=== PATIENT | female | born 1950 | race Caucasian/White ===

== ENCOUNTER 2017-05-06 10:13 | Outpatient (CLI) | payer OTHER ==
[2017-05-06 11:19] LABS: BASOPHILS % (AUTO) 0.5 %; EOSINOPHILS # (AUTO) 0.2 10^3/uL (0.0-0.7); EOSINOPHILS % (AUTO) 2.9 %; HCT - HEMATOCRIT 37.6 % (37.0-47.0); LYMPHOCYTES # (AUTO) 1.5 10^3/uL (1.5-3.5); LYMPHOCYTES % (AUTO) 24.3 %; MEAN CORPUSCULAR HEMOGLOBIN 31.1 pg (27.0-31.0); MEAN CORPUSCULAR HGB CONC 34.4 g/dL (32.0-36.0); MEAN CORPUSCULAR VOLUME 90.4 fL (81.0-99.0); MEAN PLATELET VOLUME 7.3 fL (7.9-10.8); MONOCYTES # (AUTO) 0.4 10^3/uL (0.0-1.0); NEUTROPHILS % (AUTO) 65.3 %; RED BLOOD COUNT 4.16 10^6/uL (4.20-5.40); RED CELL DISTRIBUTION WIDTH 13.6 % (12.0-15.0); UNCORRECTED WHITE BLOOD COUNT 6.2 x10^3/uL; WHITE BLOOD COUNT 6.2 x10^3/uL (4.8-10.8)
[2017-05-06 11:33] LABS: ALBUMIN/GLOBULIN RATIO 1.5 (1.0-2.2); BILIRUBIN,TOTAL 0.7 mg/dL (0.2-1.0); BUN - BLOOD UREA NITROGEN 20 mg/dL (6-20); CALCIUM 9.8 mg/dL (8.5-10.3); CARBON DIOXIDE - CO2 25 mmol/L (21-32); CHLORIDE 103 mmol/L (101-111); CHOL/HDL RATIO 2.5 (<4.4); CHOLESTEROL 173 mg/dL; CREATININE 1.2 mg/dL (0.4-1.0); GFR - MDRD 45 (>89); GLUCOSE 103 mg/dL (70-100); HDL CHOLESTEROL 70 mg/dL; LDL/HDL RATIO 1.1 (<4.4); POTASSIUM 3.8 mmol/L (3.5-5.0); SODIUM 140 mmol/L (135-145); TOTAL PROTEIN 7.1 g/dL (6.7-8.2); TRIGLYCERIDES 139 mg/dL; VLDL CHOLESTEROL 28 mg/dL
[2017-05-06 11:36] LABS: HEMOGLOBIN A1C 0.58 g/dL
[2017-05-06 11:57] LABS: THYROID STIMULATING HORMONE 0.38 uIU/mL (0.34-5.60)
== END 2017-05-06 10:14 | disposition home or self-care (01) ==
LOC: LAB 10:13
PROVIDERS: ATTEND Physician Assistant
DX: E78.5 Hyperlipidemia, unspecified (principal); E03.9 Hypothyroidism, unspecified; E55.9 Vitamin D deficiency, unspecified; R73.01 Impaired fasting glucose
CPT/HCPCS: 36415; 80053; 80061; 82306; 83036; 84436; 84443; 85025

== ENCOUNTER 2017-10-13 10:23 | Emergency (ER) | payer OTHER ==
[2017-10-13 11:05] VITALS: BP 128/68
--- NOTE | 2017-10-13 11:23 | XRAY Report ---
EXAM: RIGHT FOOT RADIOGRAPHY EXAM DATE: 10/13/2017 11:03 AM. CLINICAL HISTORY: Right foot pain. COMPARISON: None. TECHNIQUE: 3 views. FINDINGS: Bones: No fracture or bone destructive process. No periostitis. Small dorsal calcaneal enthesophyte. Joints: No subluxation. Mild degenerative changes first MTP joint. Soft Tissues: No periarticular or soft tissue calcification or soft tissue emphysema. IMPRESSION: 1. No fracture or bony malalignment. 2. Mild degenerative changes first MTP joint. [facility] Referring Provider Line: [phone] SITE ID: [id number]
--- NOTE | 2017-10-13 11:23 | XRAY Preliminary Report ---
Exam: XR FOOT 3 VIEW RT IMPRESSION: 1. No fracture or bony malalignment. 2. Mild degenerative changes first MTP joint. [facility] SITE ID: [id number]
--- NOTE | 2017-10-13 12:12 | ED Physician Documentation ---
PD HPI LOWER EXT INJURY - Stated complaint Stated Complaint: R FOOT PX - Chief complaint Chief Complaint: Trauma Ext - History obtained from History obtained from: Patient - History of Present Illness PD HPI LOW EXT INJURY LOCATION: Right, Foot Type of injury: Twist Timing - onset: Yesterday Timing - details: Abrupt onset, Still present Worsened by: Moving, Palpating Associated symptoms: Swelling. No: Weakness, Numbness Similar symptoms before: Has not had sx before Recently seen: Not recently seen Review of Systems Skin: denies: Abrasion (s), Laceration (s) Musculoskeletal: reports: Extremity swelling Neurologic: denies: Focal weakness, Numbness PD PAST MEDICAL HISTORY - Past Medical History Past Medical History: Yes Cardiovascular: High cholesterol Endocrine/Autoimmune: Other HEENT: Chronic sinusitis - Past Surgical History Past Surgical History: No - Present Medications Home Medications: Ambulatory Orders Medication Instructions Recorded Confirmed Acetaminophen [Tylenol] 1,000 mg PO Q8HR PRN 10/13/17 Aspirin [Aspirin EC] 81 mg PO DAILY 10/13/17 Atorvastatin [Lipitor] 20 mg PO DAILY 10/13/17 Levothyroxine [Synthroid] 88 mcg PO DAILY 10/13/17 Loratadine [Claritin] 10 mg PO DAILY 10/13/17 guaiFENesin [Guaifenesin] 200 mg PO BID 10/13/17 metFORMIN [Glucophage] 500 mg PO BID 10/13/17 - Social History Does the pt smoke?: No Smoking Status: Never smoker - Immunizations Immunizations are current?: Yes PD ED PE NORMAL - Vitals Vital signs reviewed: Yes - General General: Alert and oriented X 3, No acute distress, Well developed/nourished - Derm Derm: Normal color, Warm and dry - Extremities Extremities: Other (right foot with tenderness proximally at anterolateral aspect. Not tender at 5th MT per se. Local swelling and bruising. The malleoli themselves are not tender. ) Results - Vitals Vitals: Oxygen O2 Source Room air - Rads (name of study) right foot Radiology: Prelim report reviewed, EMP read contemporaneously (no fractures; some arthritic changes) PD MEDICAL DECISION MAKING - ED course Complexity details: reviewed results, considered differential, d/w patient Departure - Departure Disposition: 01 Home, Self Care Clinical Impression: Sprain of right foot Qualifiers: Encounter type: initial encounter Qualified Code(s): S93.601A - Unspecified sprain of right foot, initial encounter Condition: Stable Record reviewed to determine appropriate education?: Yes Instructions: ED Sprain Foot Follow-Up: Ximena Adhikari PA [Primary Care Provider] - Comments: Firm soled shoe to help reduce motion in the midfoot. Weightbearing as tolerated and can use crutches for partial weightbearing if needed. Tylenol or ibuprofen or naproxen if needed for pains. Elevate and rest the foot often to reduce swelling. Recheck if not improved over the next week. Your x-ray appears normal without any fractures. Discharge Date/Time: 10/13/17 12:48
== END 2017-10-13 12:48 | disposition home or self-care (01) ==
LOC: ED 10:23
DX: S93.601A Unspecified sprain of right foot, initial encounter (principal); W01.0XXA Fall on same level from slipping, tripping and stumbling without subsequent striking against object, initial encounter
CPT/HCPCS: 99283

== ENCOUNTER 2018-09-10 08:08 | Outpatient (CLI) | payer BC ==
[2018-09-10 08:39] LABS: ALBUMIN 3.9 g/dL (3.2-5.5); ALBUMIN/GLOBULIN RATIO 1.4 (1.0-2.2); ALKALINE PHOSPHATASE 66 IU/L (42-121); ALT ALANINE AMINOTRANSFERASE 17 IU/L (10-60); AST ASPARTATE AMINOTRANSFERASE 18 IU/L (10-42); BUN - BLOOD UREA NITROGEN 18 mg/dL (6-20); CALCIUM 9.2 mg/dL (8.5-10.3); CARBON DIOXIDE - CO2 27 mmol/L (21-32); CHLORIDE 103 mmol/L (101-111); CHOL/HDL RATIO 2.4 (<4.4); CHOLESTEROL 146 mg/dL; CREATININE 1.1 mg/dL (0.4-1.0); GFR - MDRD 50 (>89); GLUCOSE 115 mg/dL (70-100); HDL CHOLESTEROL 62 mg/dL; LDL CHOLESTEROL,CALCULATED 65 mg/dL; SODIUM 138 mmol/L (135-145); TOTAL PROTEIN 6.6 g/dL (6.7-8.2); VLDL CHOLESTEROL 19 mg/dL
== END 2018-09-10 08:09 | disposition home or self-care (01) ==
LOC: LAB 08:08
PROVIDERS: ATTEND Physician Assistant
DX: E78.2 Mixed hyperlipidemia (principal)
CPT/HCPCS: 36415; 80053; 80061; 83721

== ENCOUNTER 2019-01-13 08:55 | Outpatient (CLI) | payer BC ==
[2019-01-13 09:46] LABS: ALBUMIN 4.5 g/dL (3.2-5.5); ALBUMIN/GLOBULIN RATIO 1.5 (1.0-2.2); ALKALINE PHOSPHATASE 67 IU/L (42-121); ALT ALANINE AMINOTRANSFERASE 17 IU/L (10-60); AST ASPARTATE AMINOTRANSFERASE 19 IU/L (10-42); BILIRUBIN,TOTAL 0.6 mg/dL (0.2-1.0); BUN - BLOOD UREA NITROGEN 23 mg/dL (6-20); CALCIUM 9.6 mg/dL (8.5-10.3); CARBON DIOXIDE - CO2 23 mmol/L (21-32); CHLORIDE 108 mmol/L (101-111); CHOL/HDL RATIO 2.1 (<4.4); CHOLESTEROL 159 mg/dL; CREATININE 1.2 mg/dL (0.4-1.0); GFR - MDRD 45 (>89); GLUCOSE 112 mg/dL (70-100); HDL CHOLESTEROL 75 mg/dL; LDL CHOLESTEROL,CALCULATED 65 mg/dL; LDL/HDL RATIO 0.9 (<4.4); SODIUM 143 mmol/L (135-145); TOTAL PROTEIN 7.6 g/dL (6.7-8.2); VLDL CHOLESTEROL 19 mg/dL
[2019-01-13 09:47] LABS: HB2 TOTAL 14.4 g/dL; HEMOGLOBIN A1C 0.62 g/dL; HEMOGLOBIN A1C % 6.1 % (4.6-6.2)
[2019-01-13 10:36] LABS: THYROID STIMULATING HORMONE 0.92 uIU/mL (0.34-5.60)
[2019-01-13 10:39] LABS: FREE T4 (FREE THYROXINE) 1.06 ng/dL (0.58-1.64)
[2019-01-13 10:43] LABS: TOTAL T3 0.94 ng/mL (0.87-1.78)
== END 2019-01-13 08:56 | disposition home or self-care (01) ==
LOC: LAB 08:55
PROVIDERS: ATTEND Physician Assistant
DX: E03.9 Hypothyroidism, unspecified (principal); N18.9 Chronic kidney disease, unspecified; R73.01 Impaired fasting glucose; E78.2 Mixed hyperlipidemia
CPT/HCPCS: 36415; 80053; 80061; 83036; 83721; 84439; 84443; 84480

== ENCOUNTER 2019-12-09 14:16 | Outpatient (CLI) | payer BC | END 2019-12-09 14:17 | disposition home or self-care (01) | LOC: LAB 14:16 | PROVIDERS: ATTEND Dermatology MOHS-Micrographic Surgery | DX: Z01.818 Encounter for other preprocedural examination (principal); Z20.828 Contact with and (suspected) exposure to other viral communicable diseases ==

== ENCOUNTER 2020-01-31 16:33 | Outpatient (CLI) | payer BC ==
--- NOTE | 2020-02-01 12:42 | Mammography Report ---
BILATERAL DIGITAL SCREENING MAMMOGRAM 3D/2D: 01/31/2020 CLINICAL: Routine screening. Comparison is made to exam dated: 04/23/2016 mammogram - [facility]. There are sc attered fibroglandular elements in both breasts. No significant masses, calcifications, or other findings are seen in either breast. There has been no significant interval change. IMPRESSION: NEGATIVE There is no mammographic evidence of malignancy. A 1 year screening mammogram is recommended. This exam was interpreted at Station ID: [id number]. NOTE: For mammograms, a report in lay terms will be sent to the patient. Approximately 15% of breast malignancies will not be visualized mammographically. In the management of a palpable breast mass, a negative mammogram must not discourage biopsy of a clinically suspicious lesion. Electronically Signed By: Zuly do/kandace:02/01/2020 10:16:21 ACR BI-RADS Category 1: Negative 3341F PARENCHYMAL PATTERN: (A) - The breast(s) demonstrate(s) scattered fibroglandular densities. BI-RADS CATEGORY: (1) - 1 RECOMMENDATION: (ANNUAL) - Recommend routine annual screening mammography. [id number] 1 year screening LATERALITY: (B)
== END 2020-01-31 16:34 | disposition home or self-care (01) ==
LOC: DI 16:33
PROVIDERS: ATTEND Nurse Practitioner Family
DX: Z12.31 Encounter for screening mammogram for malignant neoplasm of breast (principal)
CPT/HCPCS: 77063; 77067

== ENCOUNTER 2020-03-21 14:24 | Outpatient (CLI) | payer BC ==
[2020-03-21 15:09] LABS: BASOPHILS % (AUTO) 0.8 %; EOSINOPHILS # (AUTO) 0.2 10^3/uL (0.0-0.7); EOSINOPHILS % (AUTO) 3.5 %; HGB - HEMOGLOBIN 13.6 g/dL (12.0-16.0); LYMPHOCYTES # (AUTO) 1.5 10^3/uL (1.5-3.5); LYMPHOCYTES % (AUTO) 31.5 %; MEAN CORPUSCULAR HEMOGLOBIN 31.1 pg (27.0-31.0); MEAN CORPUSCULAR HGB CONC 32.9 g/dL (32.0-36.0); MEAN CORPUSCULAR VOLUME 94.7 fL (81.0-99.0); MEAN PLATELET VOLUME 9.1 fL (7.9-10.8); MONOCYTES # (AUTO) 0.4 10^3/uL (0.0-1.0); MONOCYTES % (AUTO) 7.6 %; NEUTROPHILS # (AUTO) 2.7 10^3/uL (1.5-6.6); NEUTROPHILS % (AUTO) 56.4 %; PLT - PLATELET COUNT 280 10^3/uL (130-450); RED BLOOD COUNT 4.37 10^6/uL (4.20-5.40); RED CELL DISTRIBUTION WIDTH 13.7 % (12.0-15.0); WHITE BLOOD COUNT 4.9 x10^3/uL (4.8-10.8)
[2020-03-21 15:18] LABS: ALBUMIN 4.6 g/dL (3.2-5.5); ALBUMIN/GLOBULIN RATIO 1.5 (1.0-2.2); BILIRUBIN,TOTAL 0.7 mg/dL (0.2-1.0); CALCIUM 9.6 mg/dL (8.5-10.3); CREATININE 1.3 mg/dL (0.4-1.0); TOTAL PROTEIN 7.6 g/dL (6.7-8.2)
[2020-03-21 15:19] LABS: INR 1.1 (0.8-1.2); PT - PROTHROMBIN TIME 12.4 secs (9.9-12.6)
[2020-03-21 15:26] LABS: PARTIAL THROMBOPLASTIN TIME 35.9 secs (24.9-33.3)
== END 2020-03-21 14:25 | disposition home or self-care (01) ==
LOC: LAB 14:24
PROVIDERS: ATTEND Physician Assistant
DX: Z01.818 Encounter for other preprocedural examination (principal)
CPT/HCPCS: 36415; 80053; 85025; 85610; 85730

== ENCOUNTER 2020-03-23 15:20 | Outpatient (CLI) | payer BC ==
--- NOTE | 2020-03-23 16:09 | XRAY Report ---
PROCEDURE: Knee 4 View BILAT INDICATIONS: OSTEOARTHRITIS, KNEES, BILAT TECHNIQUE: 3 views of each knee were acquired. COMPARISON: 01/12/2019. FINDINGS: Bones: No fractures or dislocations. Postsurgical changes redemonstrated consistent with prior right ACL reconstruction. Tricompartmental osteophytosis demonstrated bilaterally. Within the right knee, there is moderate to severe joint space narrowing in the lateral compartment with subchondral scleros is. There is mild joint space narrowing in the medial compartment. In the patellofemoral compartment, there is lateral shift of the patella with osteophytosis. There is associated moderate to severe heidi rowing in the lateral patellofemoral compartment. The findings appear increased compared to the prior study. On the left, there is moderate joint space narrowing in the lateral compartment with subchond ral sclerosis. This appears similar to the prior study. In the patellofemoral compartment, there is o steophytosis in the medial and lateral compartments with associated moderate narrowing medially and m ild narrowing laterally. Soft tissues: There is a small left knee joint effusion and minimal right effusion. A calcification i s redemonstrated anteriorly at the femoral tibial joint on the left again likely representing a joint body. IMPRESSION: 1. Bilateral osteoarthritic changes, most prominent in the right lateral tibiofemoral and patellofemo ral compartments where there is moderate to severe joint space narrowing. Findings appear progressed compared to the prior study on the right and similar on the left. 2. Small left knee joint effusion. 3. Probable small joint body redemonstrated in the left knee. Reviewed by: Ian Arias MD on 03/23/2020 4:08 PM PDT Approved by: Ian Arias MD on 03/23/2020 4:08 PM PDT Station ID: [id number]
== END 2020-03-23 15:21 | disposition home or self-care (01) ==
LOC: DI 15:20
PROVIDERS: ATTEND Orthopaedic Surgery
DX: M17.0 Bilateral primary osteoarthritis of knee (principal); M25.462 Effusion, left knee

== ENCOUNTER 2020-07-06 18:55 | Outpatient (CLI) | payer BC | END 2020-07-06 18:56 | disposition home or self-care (01) | LOC: COV 18:55 | PROVIDERS: ATTEND Orthopaedic Surgery | DX: Z01.812 Encounter for preprocedural laboratory examination (principal); M17.12 Unilateral primary osteoarthritis, left knee; Z20.822 Contact with and (suspected) exposure to COVID-19 ==

== ENCOUNTER 2020-07-11 06:18 | Day surgery (SDC) | payer BC ==
[2020-07-11] MEDS ORDERED: GABAPENTIN 400 MG CAPSULE ONE (06:44)
[2020-07-11] MEDS ORDERED: CELECOXIB 100 MG CAPSULE PO ONE (06:44)
[2020-07-11] MEDS ORDERED: ceFAZolin 2 GM/50 ML 2 GM/50 ML BAG IV ONE (06:45)
[2020-07-11] MEDS ORDERED: ACETAMINOPHEN 1,000 MG/100 ML 100 ML IV ONE (06:45)
[2020-07-11] MEDS ORDERED: DEXAMETHASONE 10 MG/ML VIAL ONE (06:45)
[2020-07-11] MEDS ORDERED: SODIUM CHLORIDE 0.9% 1,000 ML IV ONE (07:00)
[2020-07-11] MEDS ORDERED: LACTATED RINGERS 1,000 ML IV ONE ×2 (07:00→11:55)
[2020-07-11] MEDS ORDERED: VANCOMYCIN 1 GM VIAL ONE ×2 (07:11→07:47)
[2020-07-11] MEDS ORDERED: ceFAZolin 1 GM VIAL ONE (07:11)
--- NOTE | 2020-07-11 07:19 | ANESTHESIA ---
Pre-Anesthesia VS, & Labs - Diagnosis left knee osteoarthritis - Procedure left knee arthroplasty Vital Signs: Temp Pulse Resp BP Pulse Ox 36.0 C L 67 16 124/69 97 07/11/20 07:03 07/11/20 07:03 07/11/20 07:03 07/11/20 07:03 07/11/20 07:03 Height: 5 ft 7 in Weight (kg): 84.5 kg Body Mass Index: 29.1 BMI Classification: Overweight - NPO >8 hours - Is Patient ?: No - Lab Results Current Lab Results: Laboratory Tests 07/11/20 06:56: POC Whole Bld Glucose 81 Home Medications and Allergies Home Medications: Ambulatory Orders Glucosam/Fer-Msm1/C/Jose Daniel/Bosw [Jfugcjbnmzx-Eeqgwbzdfjm-GMP Tb] 1 each PO DAILY 06/29/20 Turmeric 400 mg PO DAILY 06/29/20 Escitalopram [Lexapro] 10 mg PO DAILY 07/11/20 Atorvastatin [Lipitor] 20 mg PO DAILY 10/13/17 Levothyroxine [Synthroid] 88 mcg PO DAILY 10/13/17 Glucosam/Fer-Msm1/C/Jose Daniel/Bosw [Djrsrtlcqyo-Ftaeqyboinb-HEL Tb] 1 each PO DAILY 06/29/20 Turmeric 400 mg PO DAILY 06/29/20 Escitalopram [Lexapro] 10 mg PO DAILY 07/11/20 Allergies/Adverse Reactions: Allergies Allergy/AdvReac Type Severity Reaction Status Date / Time baclofen Allergy hypotension Verified 06/29/20 12:11 duloxetine [From Cymbalta] AdvReac diarrhea Verified 06/29/20 12:11 gluten AdvReac worsens IBS Verified 06/29/20 12:11 dairy products AdvReac worsens IBS Uncoded 06/29/20 12:11 Anes History & Medical History - Anesthetic History Anesthesia Complications: reports: No previous complications - Medical History Cardiovascular: reports: High cholesterol Pulmonary: reports: None Gastrointestinal: reports: GERD (occassional), Chronic constipation Urinary: reports: Renal insuffiency (CKD GFR 41) Neuro: reports: None Musculoskeletal: reports: Osteoarthritis Endocrine/Autoimmune: reports: HyPOthyroidism Blood Disorders: reports: None Skin: reports: None Smoking Status: Never smoker Psychosocial: reports: Depression History of Cancer?: No - Surgical History Gynecologic: Hysterectomy Orthopedic: ACL reconstruction, Arthroscopic surgery Other Past Surgical History: Nephrectomy Exam General: Alert, Oriented x3, Cooperative, No acute distress Dental: WNL Mouth Openin Fingerbreadth Neck Mobility: Normal Mallampati classification: II Thyromental Distance: 4-6 cm Mental/Cognitive Status: Alert/Oriented X3, Normal for patient Plan Anesthesia Type: Spinal, Adductor Block (left) Regional Block: Per Surgeon's request for Post Op pain control Consent for Procedure(s) Verified and Reviewed: Yes Code Status: Attempt Resuscitation ASA classification: 2-Mild systemic disease Is this case an emergency?: No
[2020-07-11] MEDS ORDERED: MIDAZOLAM 2 MG/2 ML VIAL ONE (07:33)
[2020-07-11] MEDS ORDERED: BUPIVACAINE 0.5% PF 10 ML VIAL ONE (07:34)
[2020-07-11] MEDS ORDERED: ONDANSETRON 4 MG/2 ML VIAL ONE (07:34)
[2020-07-11] MEDS ORDERED: PROPOFOL 500 MG/50 ML 500 MG/50 ML VIAL ONE ×2 (07:34→10:08)
[2020-07-11] MEDS ORDERED: PROPOFOL 200 MG/20 ML VIAL IVP ONE (07:34)
[2020-07-11] MEDS ORDERED: PHENYLEPHRINE 10 MG/ML VIAL ONE (07:45)
[2020-07-11] MEDS ORDERED: KETAMINE 500 MG/10 ML VIAL ONE (07:47)
[2020-07-11] MEDS ORDERED: TRANEXAMIC ACID 1,000 MG/10 ML VIAL ONE ×2 (08:15→11:10)
[2020-07-11] MEDS ORDERED: HYDROmorphone 0.5 MG/0.5 ML SYRINGE IVP PRN (09:56)
[2020-07-11] MEDS ORDERED: ATROPINE ABBOJECT 1 MG/10 ML SYRINGE IVP PRN (09:56)
[2020-07-11] MEDS ORDERED: fentaNYL 100 MCG/2 ML VIAL IVP PRN (09:56)
[2020-07-11] MEDS ORDERED: NALOXONE 0.4 MG/ML VIAL IVP PRN (09:56)
[2020-07-11] MEDS ORDERED: MORPHINE 2 MG/ML CARPUJECT IVP PRN (09:56)
[2020-07-11] MEDS ORDERED: ONDANSETRON 4 MG/2 ML VIAL IVP PRN ×2 (09:56→11:39)
[2020-07-11] MEDS ORDERED: LACTATED RINGERS 1,000 ML IV SCH (10:00)
[2020-07-11] MEDS ORDERED: ROPIVACAINE 0.5% PF 20 ML AMPULE ONE (10:09)
[2020-07-11] MEDS ORDERED: BUPIVACAINE 0.5% PF 30 ML VIAL SUBQ ONE ×2 (10:47)
[2020-07-11] MEDS ORDERED: LIDOCAINE 2%-EPI 1:100000 20 ML MDV SUBQ ONE ×2 (10:47)
[2020-07-11] MEDS ORDERED: LIDOCAINE 2%-EPI 1:100000 20 ML MDV ONE (10:54)
[2020-07-11] MEDS ORDERED: BUPIVACAINE 0.5% PF 30 ML VIAL ONE (10:54)
[2020-07-11] MEDS ORDERED: SODIUM CHLORIDE FLUSH 0.9% 10 ML SYRINGE IVP PRN (11:39)
--- NOTE | 2020-07-11 11:54 | OPERATIVE REPORT ---
Operative Report - General Procedure Date: 07/11/20 Planned Procedure: Left total knee arthroplasty Pre-Op Diagnosis: Valgus osteoarthritis left knee Procedure Performed: Left total knee arthroplasty using Turpin [employer] Nephew journey 2 all cemented total knee system: #6 femoral component, cruciate retaining, #4 tibial baseplate, 9 mm tibial articular insert, 26 mm biconvex patella Post Op Diagnosis: Same as preoperative diagnosis - Procedure Note Primary Surgeon: Segun Valdez MD Secondary Surgeon: David ARMENDARIZ Anesthesia Provider: Kristen Mendoza CRNA Anesthesia Technique: Regional block, Spinal Estimated Blood Loss (mL): 250 Indications: This is a 69-year-old woman with bilateral knee pain with significant disability and has not responded to nonoperative treatment. She had positive clinical findings, positive x-ray findings which show loss of joint space to the lateral compartment and patellofemoral region as well. She has a valgus knee with most of the wear being to the lateral compartment but she has wear to all 3 compartments. She had preoperative medical evaluation, attended joint camp. Findings: She had 3 compartment loss of articular cartilage, worse to the lateral compartment where there was complete articular cartilage loss. There were osteophytes about all 3 compartments of the knee. The anterior cruciate ligament was deficient but the posterior cruciate ligament was intact. - Other Other Information/Narrative: The patient was brought to the operating room and was placed in a supine position. She was given a adductor canal block by anesthesia. A pneumatic tourniquet was applied to the proximal left thigh over cast padding. This was a conical shaped Doris thigh tourniquet that was sterile. A bump was placed on the operating room table to facilitate knee flexion of the left knee during surgery. A timeout procedure was performed by the entire operating room team and all were in agreement. A midline longitudinal incision was made with the knee in flexion. A medial parapatellar arthrotomy was made. The anterior horn of medial and lateral menisci were released and part of patellar fat pad was excised. The knee was flexed and the patella was dislocated laterally. A drill hole was made in the intramedullary notch with a 9.5 mm drill. Osteophytes about the proximal tibia and femur had been removed with a rondure. The distal femoral cutting guide was aligned parallel to the posterior condyles. The intramedullary stephanie and guide was advanced and the distal femoral guide was stabilized with half pins. The distal 5 degrees valgus cut was made through the distal femoral guide. Next the extra medullary tibial guide was assembled and applied and aligned to the mechanical axis in both sagittal and coronal planes. Tibial referencing was done to allow 3 mm of bone from the most affected side and 10 mm from the least affected side. The tibial guide was stabilized with half pins. Retractors were placed medially and laterally to protect the collateral ligaments and a retractor was placed directly against the posterior bone to sublux the tibia anteriorly. An oscillating saw was used to make the tibial proximal cut. The tibial block was removed as a single piece and the menisci were removed as well. The extension gap was assessed with a extension block spacer using a 10 mm spacer and this was found to fit well as well as the 9 mm spacer block with the knee in 90 degrees of flexion. Next the femoral positioning guide was applied and aligned to the epicondylar axis and Reagan line. This was secured in place with approximately 3 degrees of external rotation. The size of the femur at the anterior lateral trochlea was a #4. Drill holes were made in the 5 in 1 #6 cutting block was inserted and secured. The 5 cuts were made to the captured block using oscillating saw. The flexion gap was assessed with the 10 mm spacer and was found to fit well. The patella was then prepared. A biconvex patellar reamer was used. The tibial trial #4 was then applied to the tibia and aligned to the mechanical axis. The punch fin was utilized. Trial reduction was performed with the femoral and tibial components in place. Notch resection was then through the trial component. Pulsatile lavage was performed. A tourniquet was applied during the cementing process. The components were inserted sequentially: Tibia, femur and lastly patellar component. Excess cement was removed and the knee was placed in extension during the hardening. Dilute Betadine irrigation was performed. The knee had full range of motion, good patellar tracking. There was good stability of the knee in full extension mid flexion and 90 degrees of flexion. There was good alignment of the left knee. The tourniquet had been deflated and had been in place for 24 minutes. Hemostasis was achieved with electrocautery. The deep closure was performed with #2 Ethibond proximal and distal to the patella with the knee in 40 degrees of flexion. # 1 stratofix suture was then used to close the arthrotomy incision. 2-0 stratofix was used to close the subcutaneous tissue. 3-0 Monocryl stratofix was used to do a subcuticular skin closure. Dermabond was applied to the skin incision. After the Dermabond had hardened, a silver impregnated dressing was applied. She tolerated the procedure well and received 2 g of Ancef intravenously and 2 g of tranxamic acidA physician food and beverage assistant manager was utilized during this case, necessary to provide exposure, protection of neurovascular structures, wound closure and dressing to view
[2020-07-11] MEDS ORDERED: ROCURONIUM 50 MG/5 ML VIAL ONE (12:45)
[2020-07-11] MEDS: ceFAZolin 2 GM/50 ML 2 GM/50 ML BAG IV SCH ×2 (13:13→21:38)
--- NOTE | 2020-07-11 13:24 | ANESTHESIA POST OP EVALUATION ---
Anesthesia Post Eval - Post Anesthesia Eval Vitals: Last Vital Signs Temp 36 C L 07/11/20 12:35 Pulse 78 07/11/20 12:45 Resp 12 07/11/20 12:45 BP 112/56 L 07/11/20 12:45 Pulse Ox 98 07/11/20 12:45 CV Function Including HR & BP: positive: Stable Pain Control: positive: Satisfactory Nausea & Vomiting: positive: Negative Mental Status: positive: Baseline Respiratory Status: Airway Patent Hydration Status: Satisfactory Anesthesia Complications: positive: None
--- NOTE | 2020-07-11 14:05 | XRAY Report ---
PROCEDURE: Knee 2 View LT INDICATIONS: POST OP, LEFT KNEE TECHNIQUE: 2 views of the left knee(s) were acquired. COMPARISON: None. FINDINGS: Bones: No fractures or dislocations. No suspicious bony lesions. Left knee arthroplasty has been p erformed. Soft tissues: No joint effusion. No suspicious soft tissue calcifications. IMPRESSION: Expected appearance of left knee arthroplasty. Reviewed by: Mary Anne Garza MD on 07/11/2020 2:04 PM PST Approved by: Mary Anne Garza MD on 07/11/2020 2:04 PM PST Station ID: [id number]
[2020-07-11] MEDS: SODIUM CHLORIDE FLUSH 0.9% 10 ML SYRINGE IVP SCH (16:04)
[2020-07-11] MEDS: oxyCODONE 5 MG TABLET PO PRN ×2 (17:09→23:01)
[2020-07-11] MEDS: ACETAMINOPHEN 500 MG TABLET PO SCH (17:09)
[2020-07-11] MEDS ORDERED: SENNA 8.6 MG TABLET PO PRN (17:38)
[2020-07-11] MEDS ORDERED: SODIUM CHLORIDE 0.9% 500 ML IV ONE (19:04)
[2020-07-11 19:12] LABS: BASOPHILS % (AUTO) 0.1 %; HGB - HEMOGLOBIN 11.3 g/dL (12.0-16.0); LYMPHOCYTES # (AUTO) 0.4 10^3/uL (1.5-3.5); LYMPHOCYTES % (AUTO) 3.6 %; MEAN CORPUSCULAR HEMOGLOBIN 31.2 pg (27.0-31.0); MEAN CORPUSCULAR HGB CONC 31.7 g/dL (32.0-36.0); MEAN CORPUSCULAR VOLUME 98.3 fL (81.0-99.0); MEAN PLATELET VOLUME 9.2 fL (7.9-10.8); MONOCYTES # (AUTO) 0.3 10^3/uL (0.0-1.0); MONOCYTES % (AUTO) 3.3 %; NEUTROPHILS # (AUTO) 8.9 10^3/uL (1.5-6.6); NEUTROPHILS % (AUTO) 92.8 %; PLT - PLATELET COUNT 238 10^3/uL (130-450); RED BLOOD COUNT 3.62 10^6/uL (4.20-5.40); RED CELL DISTRIBUTION WIDTH 12.8 % (12.0-15.0); WHITE BLOOD COUNT 9.6 x10^3/uL (4.8-10.8)
[2020-07-11] MEDS: NS W/20 MEQ KCL 1,000 ML IV SCH (19:14)
[2020-07-11 19:22] LABS: CALCIUM 8.9 mg/dL (8.5-10.3); CREATININE 1.2 mg/dL (0.4-1.0)
[2020-07-11] MEDS ORDERED: ATORVASTATIN 10 MG TABLET PO SCH (21:00)
[2020-07-11] MEDS: ASPIRIN EC 81 MG TABLET PO SCH (21:37)
[2020-07-11] MEDS: ethyl alcohoL 62% SWAB AMPULE NAS SCH (21:38)
--- NOTE | 2020-07-11 22:06 | CONSULTATION NOTE ---
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 She was cleared by her PCP for undergoing elective left knee surgery and presented for this today and had successful arthroplasty done. When she was in her hospital room after the surgery and required pain medication, she says that she got an oxycodone and then was sitting in a recliner for dinner and got sudden lightheadedness, to the point of having tunnel vision and thought she would blackout. The nursing staff put her in a supine position and then transferred her to the bed. At that point, blood pressure was as low as 87/41. The patient states she felt dizzy for quite a long time and she was started on IV fluid resuscitation with a bolus then drip at 100 cc/hr. In about an hour, blood pressure improved to 123/62. She is mentating fine now she states. She reports she never had complete syncope. She has never had this happen before, but she runs a low or soft blood pressure, she says in the 118-130 systolic range. She reports that the preop clearance done with her PCP had included an EKG, which she states was normal, and no other preop testing was required and she was cleared for undergoing the knee surgery with general anesthesia. She denies any chest pain or shortness of breath with this event. She underlines that it happened shortly after getting narcotics for pain management. PAST MEDICAL HISTORY 1. Hypothyroidism. 2. Kidney donor, and therefore, she has one kidney. 3. CKD. 4. Hyperlipidemia. 5. Anxiety and depression. ALLERGIES 1. BACLOFEN. 2. LACTULOSE. 3. DULOXETINE. 4. GLUTEN. MEDICATIONS 1. Glucosamine chondroitin MSM combination. 2. Turmeric daily. 3. Atorvastatin 20 mg daily. 4. Lexapro 10 mg daily. 5. Synthroid 88 mcg daily. FAMILY HISTORY: No inherited diseases. 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 She has been with that department for about 20 years. She is a nonsmoker, drinks no alcohol. No illicit drug use history. She lives alone. Her female spouse two years ago from breast cancer with metastasis. REVIEW OF SYSTEMS: A comprehensive review of systems was performed and the pertinent positives are listed, the rest are negative. PHYSICAL EXAM GENERAL: Middle-aged white female, currently in no distress. VITAL SIGNS: Blood pressure 123/62, pulse 70 in sinus rhythm, afebrile, room air saturation 95%. HEENT: Unremarkable. She has moist oral mucosa. NECK: No JVD in a vertical position. CHEST: Clear. HEART: Normal S1, S2 and no murmurs. ABDOMEN: Soft, nontender. Normal bowel sounds. EXTREMITIES: No clubbing, cyanosis or edema. The left leg has an Cb bandage from the mid-thigh down to the mid-castellon. NEUROLOGIC: Grossly intact. LABORATORY DATA: Labs were done after the hypotensive episode and showed sodium 140, potassium 4.1, carbon dioxide 22, BUN 19, creatinine 1.2. Her baseline creatinine runs 1.2-1.3 for several years. Glucose was 226, Calcium 8.9. No liver tests were done. White blood count 9.6, hemoglobin 11.3 with an MCV of 98, RDW 12.8, and platelet count normal at 238. No INR was done. No urinalysis was done. I have no access to the preop EKG or any pre-op electrolytes, except that five days ago, her COVID test was negative. X-ray imaging done postop showed left knee arthroplasty. No EKG has been done. IMPRESSION/DIAGNOSES 1. Hypotension. Multifactorial, from #2 and #3. 2. Volume depletion by virtue of being NPO for surgery and suspected from abnormal creatinine. 3. Medication side effect; low blood pressure after narcotic dose. 4. Chronic kidney disease. 5. 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 6. Hypothyroidism, on treatment. 7. Elevated cholesterol, on treatment. 8. Anxiety and depression. RECOMMENDATIONS: Continue with the IV volume replacement with iv fluids, encourage p.o. intake of fluids as well. Recommend a bedside commode for transfers because of this recent hypotension. We will check orthostasis after overnight IV fluids. Recommend decreasing narcotic doses, which were probably adding to the low blood pressure. Continue to avoid nephrotoxic agents, she knows to avoid NSAIDs. Resume her hypothyroidism treatment, her cholesterol treatment and her anxiety and depression treatment. Recheck electrolytes and a CBC before discharge tomorrow. Continue with plan for physical therapy after discharge being careful about orthostatic hypotension. CODE STATUS: FULL CODE. DEEP VENOUS THROMBOSIS PROPHYLAXIS: As per Orthopedics, aspirin has been started daily. Thank you for allowing me to participate in the care of this patient. cc: MD Honey Fowler PA TD: 07/11/2020 21:37 [facility]
[2020-07-12] MEDS: ACETAMINOPHEN 500 MG TABLET PO SCH ×2 (01:04→06:36)
[2020-07-12] MEDS: SODIUM CHLORIDE FLUSH 0.9% 10 ML SYRINGE IVP SCH ×2 (01:06→13:53)
[2020-07-12 04:46] LABS: BASOPHILS % (AUTO) 0.1 %; HGB - HEMOGLOBIN 10.2 g/dL (12.0-16.0); LYMPHOCYTES # (AUTO) 0.7 10^3/uL (1.5-3.5); LYMPHOCYTES % (AUTO) 7.4 %; MEAN CORPUSCULAR HEMOGLOBIN 30.8 pg (27.0-31.0); MEAN CORPUSCULAR HGB CONC 32.6 g/dL (32.0-36.0); MEAN CORPUSCULAR VOLUME 94.6 fL (81.0-99.0); MEAN PLATELET VOLUME 8.8 fL (7.9-10.8); MONOCYTES # (AUTO) 0.8 10^3/uL (0.0-1.0); MONOCYTES % (AUTO) 8.8 %; NEUTROPHILS # (AUTO) 7.5 10^3/uL (1.5-6.6); NEUTROPHILS % (AUTO) 83.3 %; PLT - PLATELET COUNT 213 10^3/uL (130-450); RED BLOOD COUNT 3.31 10^6/uL (4.20-5.40); RED CELL DISTRIBUTION WIDTH 12.9 % (12.0-15.0)
[2020-07-12 04:53] LABS: CALCIUM 8.5 mg/dL (8.5-10.3); CREATININE 1.1 mg/dL (0.4-1.0)
[2020-07-12] MEDS: NS W/20 MEQ KCL 1,000 ML IV SCH (05:27)
[2020-07-12] MEDS: oxyCODONE 5 MG TABLET PO PRN ×2 (06:37→12:19)
[2020-07-12] MEDS ORDERED: LEVOTHYROXINE 88 MCG TABLET PO SCH (07:00)
--- NOTE | 2020-07-12 07:27 | PROVIDER PROGRESS NOTE ---
Assessment/Plan - Problem List (1) Arthritis of left knee Assessment/Plan: Status post left total knee arthroplasty. Postop day 1 This is managed by orthopedic surgery. Patient is working with PT/OT. Pain management as needed with Tylenol and oxycodone (2) Hypotension Assessment/Plan: Was likely multifactorial. Secondary to volume depletion and/or pain medication. Patient's blood pressure improved significantly with IV hydration. By the day of discharge orthostatics were unremarkable. Patient is medically stable. She is cleared to be discharged from medical point of view. The hospitalist service will sign off. 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 Patient's creatinine is usually between 1-1.2. Patient is around baseline. We will continue to monitor. (4) Hypothyroidism Assessment/Plan: On Synthroid 88 mcg p.o. daily (5) Hyperlipidemia Assessment/Plan: On atorvastatin 20 mg p.o. daily (6) Anxiety and depression Assessment/Plan: On Lexapro 10 mg p.o. daily - Current Meds Current Meds: Current Medications Generic Name Dose Route Start Last Admin Trade Name Freq PRN Reason Stop Dose Admin Acetaminophen 1,000 mg 07/11/20 18:00 07/12/20 06:36 Acetaminophen 500 Mg Tablet PO 1,000 mg Q6HR BILL Administration Alcohol 1 amp 07/11/20 21:00 07/11/20 21:38 Ethyl Alcohol 62% Swab Ampule VITA 1 amp BID BILL Administration Aspirin 81 mg 07/11/20 21:00 07/11/20 21:37 Aspirin Ec 81 Mg Tablet PO 81 mg BID BILL Administration Atorvastatin Calcium 20 mg 07/11/20 21:00 07/11/20 21:37 Atorvastatin 10 Mg Tablet PO 20 mg QPM BILL Administration Potassium Chloride/Sodium Chloride 1,000 mls @ 100 mls/hr 07/11/20 18:34 07/12/20 05:27 Normal Saline 0.9% W/20 Meq Kcl IV 100 mls/hr .Q10H BILL Administration Levothyroxine Sodium 88 mcg 07/12/20 07:00 07/12/20 06:36 Levothyroxine 88 Mcg Tablet PO 88 mcg QDAC BILL Administration Oxycodone HCl 5 mg 07/11/20 11:39 07/12/20 06:37 Oxycodone 5 Mg Tablet PO 5 mg Q6HR PRN Administration PAIN Senna 8.6 - 17.2 mg 07/11/20 17:38 07/11/20 21:58 Senna 8.6 Mg Tablet PO 07/13/20 17:37 17.2 mg DAILY PRN Administration Constipation Sodium Chloride 10 ml 07/11/20 17:00 07/12/20 01:06 Sodium Chloride Flush 0.9% 10 Ml Syringe IVP Not Given 0100,0900,1700 BILL - Lab Result Fish Bone Diagrams: 07/12/20 04:21 07/12/20 04:21 - Additional Planning My Orders: My Active Orders 07/13/20 05:00 BMP - BASIC METABOLIC PANEL [CHEM] DAILYLAB CBC - COMP BLD CT W/AUTO DIFF [HEME] DAILYLAB 07/14/20 05:00 BMP - BASIC METABOLIC PANEL [CHEM] DAILYLAB CBC - COMP BLD CT W/AUTO DIFF [HEME] DAILYLAB Subjective - Subjective Patient Reports: Other (Patient was very alert and awake this morning. She was having breakfast at the time of exam. She reported mild pain in the left knee which is consistent with surgery and slightly worse with activity. She denied dizziness or weakness.) Objective Vital Signs: Vital Signs - 24 hr 07/11/20 07/11/20 07/11/20 11:48 11:55 12:00 Temperature 36.5 C 36.5 C Heart Rate 79 81 84 Heart Rate [ Activity] Heart Rate [ 78 Brachial] Heart Rate [ Radial] Heart Rate [ Supine] Respiratory 12 15 18 Rate Blood Pressure 123/56 L 126/61 106/85 H Blood Pressure [Activity] Blood Pressure 115/47 L [Left Brachial artery] Blood Pressure [Right Brachial artery] Blood Pressure [Supine] O2 Saturation 99 96 97 07/11/20 07/11/20 07/11/20 12:05 12:10 12:15 Temperature 36.5 C Heart Rate 82 97 81 Heart Rate [ Activity] Heart Rate [ 71 Brachial] Heart Rate [ Radial] Heart Rate [ Supine] Respiratory 17 16 19 Rate Blood Pressure 138/76 H 106/87 H 104/62 Blood Pressure [Activity] Blood Pressure 120/53 L [Left Brachial artery] Blood Pressure [Right Brachial artery] Blood Pressure [Supine] O2 Saturation 96 97 96 07/11/20 07/11/20 07/11/20 12:20 12:25 12:30 Temperature 36.0 C L Heart Rate 84 76 86 Heart Rate [ Activity] Heart Rate [ Brachial] Heart Rate [ Radial] Heart Rate [ Supine] Respiratory 15 12 20 Rate Blood Pressure 113/64 117/55 L 116/51 L Blood Pressure [Activity] Blood Pressure [Left Brachial artery] Blood Pressure [Right Brachial artery] Blood Pressure [Supine] O2 Saturation 97 97 97 07/11/20 07/11/20 07/11/20 12:35 12:40 12:45 Temperature 36 C L Heart Rate 80 77 78 Heart Rate [ Activity] Heart Rate [ Brachial] Heart Rate [ Radial] Heart Rate [ Supine] Respiratory 21 15 12 Rate Blood Pressure 118/59 L 110/57 L 112/56 L Blood Pressure [Activity] Blood Pressure [Left Brachial artery] Blood Pressure [Right Brachial artery] Blood Pressure [Supine] O2 Saturation 95 99 98 07/11/20 07/11/20 07/11/20 13:10 13:48 14:03 Temperature 36.5 C 36.5 C 36.4 C L Heart Rate 69 80 Heart Rate [ Activity] Heart Rate [ 78 Brachial] Heart Rate [ Radial] Heart Rate [ Supine] Respiratory 16 18 16 Rate Blood Pressure 136/62 H 133/61 H Blood Pressure [Activity] Blood Pressure 131/54 H [Left Brachial artery] Blood Pressure [Right Brachial artery] Blood Pressure [Supine] O2 Saturation 98 97 96 07/11/20 07/11/20 07/11/20 14:18 14:48 15:09 Temperature 36.4 C L 36.4 C L Heart Rate 80 82 84 Heart Rate [ Activity] Heart Rate [ Brachial] Heart Rate [ Radial] Heart Rate [ Supine] Respiratory 16 16 16 Rate Blood Pressure 129/56 L 131/53 H 124/52 L Blood Pressure [Activity] Blood Pressure [Left Brachial artery] Blood Pressure [Right Brachial artery] Blood Pressure [Supine] O2 Saturation 97 97 96 07/11/20 07/11/20 07/11/20 15:20 15:38 16:08 Temperature 36.9 C 36.5 C Heart Rate 77 71 Heart Rate [ 95 Activity] Heart Rate [ Brachial] Heart Rate [ Radial] Heart Rate [ 83 Supine] Respiratory 16 16 Rate Blood Pressure 124/58 L 138/60 H Blood Pressure 119/69 [Activity] Blood Pressure [Left Brachial artery] Blood Pressure [Right Brachial artery] Blood Pressure 133/56 H [Supine] O2 Saturation 95 98 07/11/20 07/11/20 07/11/20 17:08 18:08 18:10 Temperature 36.2 C L 36.3 C L Heart Rate 71 59 L Heart Rate [ Activity] Heart Rate [ 59 L Brachial] Heart Rate [ 50 L Radial] Heart Rate [ Supine] Respiratory 16 24 Rate Blood Pressure 143/70 H 87/41 L Blood Pressure [Activity] Blood Pressure 94/40 L 95/39 L [Left Brachial artery] Blood Pressure 87/41 L [Right Brachial artery] Blood Pressure [Supine] O2 Saturation 100 95 07/11/20 07/11/20 07/12/20 18:55 20:08 00:59 Temperature 36.4 C L 36.3 C L 36.8 C Heart Rate 69 79 74 Heart Rate [ Activity] Heart Rate [ Brachial] Heart Rate [ Radial] Heart Rate [ Supine] Respiratory 16 24 20 Rate Blood Pressure 123/62 151/60 H 136/73 H Blood Pressure [Activity] Blood Pressure [Left Brachial artery] Blood Pressure [Right Brachial artery] Blood Pressure [Supine] O2 Saturation 95 98 95 07/12/20 04:00 Temperature 37.8 C Heart Rate 71 Heart Rate [ Activity] Heart Rate [ Brachial] Heart Rate [ Radial] Heart Rate [ Supine] Respiratory 20 Rate Blood Pressure 137/58 H Blood Pressure [Activity] Blood Pressure [Left Brachial artery] Blood Pressure [Right Brachial artery] Blood Pressure [Supine] O2 Saturation 98 Oxygen O2 Source Room air I&O (Last 24 Hrs): Intake and Output Totals x24h 07/10/20 07/11/20 07/12/20 23:59 23:59 23:59 Intake Total 1800 1000 Output Total 2875 600 Balance -1075 400 General: Alert, Oriented x3, Cooperative, Mild distress (left knee) HEENT: Atraumatic, PERRLA, EOMI Neck: Supple, No JVD Neuro: Alert, Non Focal, Oriented Times 3 Cardiovascular: Regular rate, Normal S1, Normal S2, No murmurs Respiratory: Chest non-tender, No respiratory distress, Breath sounds nml Abdomen: Normal bowel sounds, Soft, No tenderness Extremities: No edema, Other (Left knee is currently wrapped in bandage.) Skin: No rashes - Results Results: Laboratory Results WBC 9.0 x10^3/uL (4.8-10.8) 07/12/20 04:21 RBC 3.31 10^6/uL (4.20-5.40) L 07/12/20 04:21 Hgb 10.2 g/dL (12.0-16.0) L 07/12/20 04:21 Hct 31.3 % (37.0-47.0) L 07/12/20 04:21 MCV 94.6 fL (81.0-99.0) 07/12/20 04:21 MCH 30.8 pg (27.0-31.0) 07/12/20 04:21 MCHC 32.6 g/dL (32.0-36.0) 07/12/20 04:21 RDW 12.9 % (12.0-15.0) 07/12/20 04:21 Plt Count 213 10^3/uL (130-450) 07/12/20 04:21 MPV 8.8 fL (7.9-10.8) 07/12/20 04:21 Neut # (Auto) 7.5 10^3/uL (1.5-6.6) H 07/12/20 04:21 Lymph # (Auto) 0.7 10^3/uL (1.5-3.5) L 07/12/20 04:21 Armstrong # (Auto) 0.8 10^3/uL (0.0-1.0) 07/12/20 04:21 Eos # (Auto) 0.0 10^3/uL (0.0-0.7) 07/12/20 04:21 Baso # (Auto) 0.0 10^3/uL (0.0-0.1) 07/12/20 04:21 Absolute Nucleated RBC 0.00 x10^3/uL 07/12/20 04:21 Nucleated RBC % 0.0 /100WBC 07/12/20 04:21 Sodium 137 mmol/L (135-145) 07/12/20 04:21 Potassium 3.9 mmol/L (3.5-5.0) 07/12/20 04:21 Chloride 105 mmol/L (101-111) 07/12/20 04:21 Carbon Dioxide 22 mmol/L (21-32) 07/12/20 04:21 Anion Gap 10.0 (6-13) 07/12/20 04:21 BUN 19 mg/dL (6-20) 07/12/20 04:21 Creatinine 1.1 mg/dL (0.4-1.0) H 07/12/20 04:21 Estimated GFR (MDRD) 50 (>89) L 07/12/20 04:21 Glucose 168 mg/dL (70-100) H 07/12/20 04:21 POC Whole Bld Glucose 81 mg/dL (70 - 100) 07/11/20 06:56 Calcium 8.5 mg/dL (8.5-10.3) 07/12/20 04:21
[2020-07-12] MEDS: ASPIRIN EC 81 MG TABLET PO SCH (08:01)
[2020-07-12] MEDS: ethyl alcohoL 62% SWAB AMPULE NAS SCH (08:02)
--- NOTE | 2020-07-12 08:19 | PROVIDER PROGRESS NOTE ---
Subjective - General Procedure Date: 07/11/20 Post Op Days: 1 Procedure Performed: Left knee TKA - Review of Systems Wound/Incisions: positive: Dressing dry and intact General: positive: No symptoms Cardiovascular: positive: No symptoms Musculoskeletal: positive: Joint pain, Joint swelling Skin: positive: No symptoms (Denies any numbness or tingling) Objective - Patient Data Vital Signs: Vital Signs x48h Temp Pulse Resp BP Pulse Ox 07/12/20 07:36 36.5 C 63 16 120/59 L 99 07/12/20 04:00 37.8 C 71 20 137/58 H 98 07/12/20 00:59 36.8 C 74 20 136/73 H 95 Weight: Weight 07/10/20 07/11/20 07/12/20 23:59 23:59 23:59 Weight (kg) 84.5 kg Intake & Output: Intake and Output Totals x24h 07/10/20 07/11/20 07/12/20 23:59 23:59 23:59 Intake Total 1800 1000 Output Total 2875 1150 Balance -1075 -150 - Lab Results Lab Results: 07/12/20 04:21 07/12/20 04:21 Other Lab Results: Lab Results x24hrs 07/12/20 07/12/20 07/11/20 Range/Units 04:21 04:21 19:06 WBC 9.0 (4.8-10.8) x10^3/uL RBC 3.31 L (4.20-5.40) 10^6/uL Hgb 10.2 L (12.0-16.0) g/dL Hct 31.3 L (37.0-47.0) % MCV 94.6 (81.0-99.0) fL MCH 30.8 (27.0-31.0) pg MCHC 32.6 (32.0-36.0) g/dL RDW 12.9 (12.0-15.0) % Plt Count 213 (130-450) 10^3/uL MPV 8.8 (7.9-10.8) fL Neut # (Auto) 7.5 H (1.5-6.6) 10^3/uL Lymph # (Auto) 0.7 L (1.5-3.5) 10^3/uL Power # (Auto) 0.8 (0.0-1.0) 10^3/uL Eos # (Auto) 0.0 (0.0-0.7) 10^3/uL Baso # (Auto) 0.0 (0.0-0.1) 10^3/uL Absolute Nucleated RBC 0.00 x10^3/uL Nucleated RBC % 0.0 /100WBC Sodium 137 140 (135-145) mmol/L Potassium 3.9 4.1 (3.5-5.0) mmol/L Chloride 105 104 (101-111) mmol/L Carbon Dioxide 22 22 (21-32) mmol/L Anion Gap 10.0 14.0 H (6-13) BUN 19 19 (6-20) mg/dL Creatinine 1.1 H 1.2 H (0.4-1.0) mg/dL Estimated GFR (MDRD) 50 L 45 L (>89) Glucose 168 H 226 H (70-100) mg/dL Calcium 8.5 8.9 (8.5-10.3) mg/dL 07/11/20 Range/Units 19:06 WBC 9.6 (4.8-10.8) x10^3/uL RBC 3.62 L (4.20-5.40) 10^6/uL Hgb 11.3 L (12.0-16.0) g/dL Hct 35.6 L (37.0-47.0) % MCV 98.3 (81.0-99.0) fL MCH 31.2 H (27.0-31.0) pg MCHC 31.7 L (32.0-36.0) g/dL RDW 12.8 (12.0-15.0) % Plt Count 238 (130-450) 10^3/uL MPV 9.2 (7.9-10.8) fL Neut # (Auto) 8.9 H (1.5-6.6) 10^3/uL Lymph # (Auto) 0.4 L (1.5-3.5) 10^3/uL Power # (Auto) 0.3 (0.0-1.0) 10^3/uL Eos # (Auto) 0.0 (0.0-0.7) 10^3/uL Baso # (Auto) 0.0 (0.0-0.1) 10^3/uL Absolute Nucleated RBC 0.00 x10^3/uL Nucleated RBC % 0.0 /100WBC Sodium (135-145) mmol/L Potassium (3.5-5.0) mmol/L Chloride (101-111) mmol/L Carbon Dioxide (21-32) mmol/L Anion Gap (6-13) BUN (6-20) mg/dL Creatinine (0.4-1.0) mg/dL Estimated GFR (MDRD) (>89) Glucose (70-100) mg/dL Calcium (8.5-10.3) mg/dL - Imaging Results Radiology Imaging: positive: Final report received, EMP read contemporaneously - Current Medications Current Medications: Current Medications Generic Name Dose Route Start Last Admin Trade Name Freq PRN Reason Stop Dose Admin Acetaminophen 1,000 mg 07/11/20 18:00 07/12/20 06:36 Acetaminophen 500 Mg Tablet PO 1,000 mg Q6HR BILL Administration Alcohol 1 amp 07/11/20 21:00 07/12/20 08:02 Ethyl Alcohol 62% Swab Ampule VITA 1 amp BID BILL Administration Aspirin 81 mg 07/11/20 21:00 07/12/20 08:01 Aspirin Ec 81 Mg Tablet PO 81 mg BID BILL Administration Atorvastatin Calcium 20 mg 07/11/20 21:00 07/11/20 21:37 Atorvastatin 10 Mg Tablet PO 20 mg QPM BILL Administration Escitalopram Oxalate 10 mg 07/12/20 09:00 07/12/20 08:02 Escitalopram 10 Mg Tablet PO 10 mg DAILY BILL Administration Potassium Chloride/Sodium Chloride 1,000 mls @ 100 mls/hr 07/11/20 18:34 07/12/20 05:27 Normal Saline 0.9% W/20 Meq Kcl IV 100 mls/hr .Q10H BILL Administration Levothyroxine Sodium 88 mcg 07/12/20 07:00 07/12/20 06:36 Levothyroxine 88 Mcg Tablet PO 88 mcg QDAC BILL Administration Oxycodone HCl 5 mg 07/11/20 11:39 07/12/20 06:37 Oxycodone 5 Mg Tablet PO 5 mg Q6HR PRN Administration PAIN Senna 8.6 - 17.2 mg 07/11/20 17:38 02/10/21 21:58 Senna 8.6 Mg Tablet PO 07/13/20 17:37 17.2 mg DAILY PRN Administration Constipation Sodium Chloride 10 ml 07/11/20 17:00 07/12/20 01:06 Sodium Chloride Flush 0.9% 10 Ml Syringe IVP Not Given 0100,0900,1700 BILL - Physical Exam Wound/Incisions: positive: Dressing dry and intact General Appearance: positive: No acute distress Skin: positive: Color nml, Warm Neurologic/Psychiatric: positive: Oriented x3, Motor nml, Sensation nml, Mood/affect nml, Disoriented to person Impression/Plan - Problem List Problem List: Patient is 69-year-old female postop day 1 left TKA. Hospitalist consulted. Patient did have a moment of lightheadedness yesterday evening while she was exercising her pain was increasing. IV fluids and rest were initiated along with additional pain medications feeling subsided and have not returned. Patient's been normotensive. Patient received 2 additional rounds of physical therapy today providing the patient continues to be hemodynamically stable and her pain controlled she can go home after successfully completing physical therapy.
[2020-07-12] MEDS ORDERED: ESCITALOPRAM 10 MG TABLET PO SCH (09:00)
[2020-07-12] MEDS ORDERED: ACETAMINOPHEN 500 MG TABLET PO PRN (09:52)
--- NOTE | 2020-07-12 11:37 | Discharge Plan ---
Discharge Plan Problem Reviewed?: Yes Disposition: Home, Self Care Condition: Stable Diet: Regular Activity Restrictions: Activity as Tolerated Shower Restrictions: No Driving Restrictions: Yes (Do not drive) Assistance Devices: Wheelchair (Ambiguous things and do not drive) Weight Bearing: Partial Weight Additional Instructions or Follow Up instructions: PlanHave been: Patient was stable upon rounding this morning if continues to be hemodynamically stable with no other lightheaded symptoms And successfully compl etes for final 2 PT sessions patient is cleared by orthopedics to be discharged home. Patient is also on consult the hospitalist as long as they agree patient can be discharged home. Patient has a follow-up appointment has she is weightbearing as tolerated with crutches and wheelchair. Wheelchair order has been placed. No Smoking: If you smoke, Please STOP! Call for help. Follow-up with: ESEQUIEL STOVER PA [Primary Care Provider] - Jakob Chapman PA-C [Provider Admit Priv/Credential] -
[2020-07-12] MEDS ORDERED: MAG HYDROX/AL HYDROX/SIMETH 30 ML UDC PO PRN (12:12)
--- NOTE | 2020-07-12 14:37 | PROVIDER PROGRESS NOTE ---
Hospitalist Cross-cover Note - Cross-Cover Note Cross-Cover Note: While working with occupational therapy the patient complained of chest pain. There was no radiation of pain. This coincided with worsening left knee pain and elevated blood pressure. Her systolic blood pressure at the time was 170s. On auscultation she had a regular rate and rhythm and no murmur. Her lungs were clear. She denied worsening pain on palpation. Troponin was negative. EKG showed sinus rhythm with occasional atrial premature complexes. Was negative for any indications of ischemia.The patient is on aspirin 81 mg p.o. twice daily. The patient was permitted to rest and recheck/reassessment about 90 minutes later, she reported improvement/resolution of her pain. We continued with the plan to discharge her. I called her primary care physician's office Dr. Maryan Guadarrama And requested the patient be referred/scheduled for an outpatient stress test in the near future.
[2020-07-12 15:45] VITALS: BP 156/51
[2020-07-12] MEDS ORDERED: SENNA 8.6 MG TABLET PO SCH (21:00)
== END 2020-07-12 16:00 | disposition home or self-care (01) ==
LOC: SDS 06:18 → MS2 12:43 → SDS 07-12 16:00
PROVIDERS: ATTEND Orthopaedic Surgery
DX: M17.0 Bilateral primary osteoarthritis of knee (principal); I95.2 Hypotension due to drugs; T40.0X5A Adverse effect of opium, initial encounter; Y92.230 Patient room in hospital as the place of occurrence of the external cause; N18.9 Chronic kidney disease, unspecified; E03.9 Hypothyroidism, unspecified; K21.9 Gastro-esophageal reflux disease without esophagitis; Z90.5 Acquired absence of kidney; E86.9 Volume depletion, unspecified; F41.9 Anxiety disorder, unspecified; F32.9 Major depressive disorder, single episode, unspecified; E78.5 Hyperlipidemia, unspecified; R07.9 Chest pain, unspecified; R03.0 Elevated blood-pressure reading, without diagnosis of hypertension
CPT/HCPCS: 27447; 36415; 73560; 80048; 84484; 85025; 93005; 97116; 97161; 97165; 97530; A9270; C1713; J0131; J0690; J7120

== ENCOUNTER 2020-09-07 07:10 | Outpatient (CLI) | payer BC ==
--- NOTE | 2020-09-07 16:00 | XRAY Report ---
PROCEDURE: Knee Standing BILAT INDICATIONS: KNEE JOINT OSTEOARTHRITIS- BILATERAL TECHNIQUE: 4 views of each knee are obtained. COMPARISON: None. FINDINGS: Bones: No acute fractures or dislocations. No suspicious bony lesions. Moderate right knee lateral compartment narrowing. Right knee anterior cruciate ligament repair. Left knee arthroplasty. Moderate tricompartmental periarticular formation involving the right knee. Soft tissues: No knee joint effusions. No suspicious soft tissue calcification. IMPRESSION: 1. Postsurgical sequelae. 2. Right knee osteoarthritis with lateral compartment narrowing. 3. No acute fracture. No osseous lesion. If symptoms and/or clinical suspicion for pathology continue , further assessment with repeat plain films, or advanced imaging (e.g., CT, MRI, or bone scan) is re commended for further assessment. Reviewed by: Mary Anne Garza MD on 09/07/2020 3:59 PM PDT Approved by: Mary Anne Garza MD on 09/07/2020 3:59 PM PDT Station ID: [id number]
== END 2020-09-07 07:11 | disposition home or self-care (01) ==
LOC: DI.N 07:10
PROVIDERS: ATTEND Physician Assistant
DX: M17.0 Bilateral primary osteoarthritis of knee (principal)

== ENCOUNTER 2020-10-04 17:10 | Outpatient (CLI) | payer BC ==
--- NOTE | 2020-10-04 17:14 | XRAY Report ---
PROCEDURE: Knee 4 View LT INDICATIONS: TOTAL KNEE REPLACMENT, LEFT TECHNIQUE: 4 views of the left knee were acquired. COMPARISON: None. FINDINGS: Bones: Post surgical changes are again seen from left total knee arthroplasty with unchanged alignmen t. No signs of loosening or osteonecrosis are seen. Soft tissues: Moderate joint effusion. No suspicious soft tissue calcifications. IMPRESSION: Postsurgical changes from left total hip arthroplasty. No acute osseous abnormality. Mod erate joint effusion. If symptoms persist with conservative management, further evaluation with MRI o r CT may be obtained. Reviewed by: Dane Zuniga MD on 10/04/2020 5:13 PM PDT Approved by: Dane Zuniga MD on 10/04/2020 5:13 PM PDT Station ID: [id number]
== END 2020-10-04 23:59 | disposition home or self-care (01) ==
LOC: DI.N 17:10
PROVIDERS: ATTEND Physician Assistant
DX: M25.462 Effusion, left knee (principal); Z96.652 Presence of left artificial knee joint

== ENCOUNTER 2020-11-09 10:07 | Outpatient (CLI) | payer BC ==
--- NOTE | 2020-11-09 11:38 | CARDIAC PROCEDURE NOTE ---
Stress Test Report Service Date: 11/09/20 Ordering Provider: Sonia Ramirez NP Indication for Test: Chest pain Cardiac Risk Factors: Post-menopausal status, hypertension (untreated), hyperlipidemia, family history of early heart disease. Type of Stress Test: Exercise Treadmill Test (ETT) Procedure: After signing informed consent, the patient underwent a Hakeem-protocol treadmill stress test. No cardiac imaging was ordered with this test. Resting heart rate: 66 Peak HR: 125 (81% predicted maximum heart rate for age). Resting blood pressure: 153/75 Peak BP: 244/64 Patient exercised for 3 minutes and 9 seconds on a Hakeem-protocol treadmill stress test. She achieved a peak heart rate of 125 (81% predicted maximum heart rate for age), and 4.81 METS. The patient developed shortness of breath quickly and pulled down her cloth Covid mask. She rated her perceived exertion at 15- 16/20 on the Reagan scale, at peak exercise. The patient also developed her typical chest pressure in stage 1, which she rated 3/10. Because of symptoms and excessive BP response, the exercise test was stopped before achieving target heart rate. O2 saturation was 96-98% on room air throughout the test. EKG: Normal sinus rhythm, rate 66, left atrial enlargement, otherwise WNL. EKG at peak: 1mm scooping ST-segment depressions in leads II, III, AVF and V5- V6. In immediate recovery, the patient said she was lightheaded and requested to lay down. She appeared to be hyperventilating and was advised to put her cloth Covid mask back on. She immediately had improvement of lightheadedness. Blood pressure at this point was 206/68. She then sat upright. Her chest pressure resolved in 6 minutes of recovery. At the 8 min marion, she again developed 1/10 chest pressure at rest. The BP cuff and EKG leads had been disconnected at this point. She was transferred to the ED for further management. Summary: 1) Borderline-normal resting EKG. 2) Poor exercise tolerance. 3) Excessive BP response to exercise. 4) Typical chest pain developed at a low level of exercise. 5) EKG changes developed with exercise and were borderline significant for ischemia. 6) Due to recurrence of chest pain at rest, the patient was taken to the ER from the stress lab. IMPRESSION: 1) Abnormal stress test with typical chest pain and excessively hypertensive BP response and borderline abnormal EKG changes with exercise. 2) No cardiac imaging was ordered with this test. 3) This patient's cardiac risk: High. 4) Due to recurrence of chest pain at rest, the patient was taken to the ER from the stress lab. See separate ER report.
== END 2020-11-09 10:08 | disposition home or self-care (01) ==
LOC: DI 10:07
PROVIDERS: ATTEND Registered Nurse
DX: R94.39 Abnormal result of other cardiovascular function study (principal); R07.9 Chest pain, unspecified; Z78.0 Asymptomatic menopausal state; I10 Essential (primary) hypertension; E78.5 Hyperlipidemia, unspecified; Z82.49 Family history of ischemic heart disease and other diseases of the circulatory system

== ENCOUNTER 2020-11-09 11:17 | Emergency (ER) | payer BC ==
[2020-11-09] MEDS ORDERED: ASPIRIN CHEW 81 MG TABLET PO STA (11:42)
--- NOTE | 2020-11-09 11:42 | ED Physician Documentation ---
PD HPI CHEST PAIN - Stated complaint Stated Complaint: CHEST PRESSURE - Chief complaint Chief Complaint: Cardiac - History obtained from History obtained from: Patient - Additional information Additional information: 69-year-old woman with no history of heart problems has been having exertional chest pressure for the last couple of months. Was referred for a stress test today and just after couple of minutes exercise got typical chest pain and blood pressure went to the 200/100 range. No obvious ischemic changes at that time on EKG. She was referred to the emergency department for further evaluation and treatment. She has been short of breath with this. Review of Systems Ten Systems: 10 systems reviewed and negative Constitutional: reports: Reviewed and negative Nose: reports: Reviewed and negative Throat: reports: Reviewed and negative PD PAST MEDICAL HISTORY - Past Medical History Cardiovascular: High cholesterol Respiratory: None Neuro: None Endocrine/Autoimmune: HyPOthyroidism GI: GERD (occassional), Chronic constipation : Renal insuffiency (CKD GFR 41) HEENT: Chronic vision loss, Chronic sinusitis Psych: Depression Musculoskeletal: Osteoarthritis Derm: None - Past Surgical History Past Surgical History: No Ortho: ACL reconstruction, Arthroscopic surgery /MAINTENANCE DIRECTOR: Hysterectomy - Present Medications Home Medications: Ambulatory Orders Medication Instructions Recorded Confirmed Atorvastatin [Lipitor] 20 mg PO DAILY 10/13/17 11/09/20 Levothyroxine [Synthroid] 88 mcg PO DAILY 10/13/17 11/09/20 Turmeric 400 mg PO DAILY 06/29/20 11/09/20 Escitalopram [Lexapro] 10 mg PO DAILY 07/11/20 11/09/20 Aspirin [[place] Aspirin] 81 mg PO DAILY 11/09/20 11/09/20 Losartan Potassium 25 mg PO DAILY #30 tablet 11/09/20 Metoprolol Succinate [Toprol Xl] 25 mg PO DAILY #30 tablet 11/09/20 Multivitamin 1 tab PO DAILY 11/09/20 11/09/20 Nitroglycerin [Nitrostat] 0.4 mg SL Q5MIN PRN #1 bottle 11/09/20 - Allergies Allergies/Adverse Reactions: Allergies Allergy/AdvReac Type Severity Reaction Status Date / Time baclofen Allergy hypotension Verified 11/09/20 11:26 lactose AdvReac Unknown worsens IBS Verified 11/09/20 11:26 duloxetine [From Cymbalta] AdvReac diarrhea Verified 11/09/20 11:26 gluten AdvReac worsens IBS Verified 11/09/20 11:26 - Social History Does the pt smoke?: No Smoking Status: Never smoker - Family History Family history: reports: CAD (She has a strong family history of coronary disease, both brothers developed coronary disease young and her father of a cardiac event in his early 50s.) - Immunizations Immunizations are current?: Yes PD ED PE NORMAL - Vitals Vital signs reviewed: Yes - General General: Alert and oriented X 3, No acute distress - HEENT HEENT: PERRL, EOMI - Neck Neck: Supple, no meningeal sign, No bony TTP - Cardiac Cardiac: RRR, No murmur - Respiratory Respiratory: No respiratory distress, Clear bilaterally - Abdomen Abdomen: Non tender - Back Back: No CVA TTP, No spinal TTP - Derm Derm: Normal color, Warm and dry - Extremities Extremities: Other (Trace pitting pedal edema, nontender calves) - Neuro Neuro: Alert and oriented X 3, Normal speech Results - Vitals Vitals: Vital Signs - 24 hr 11/09/20 11/09/20 11/09/20 11:25 12:01 12:14 Temperature 36.9 C 37.1 C Heart Rate 70 64 65 Respiratory 20 15 16 Rate Blood Pressure 188/74 H 142/76 H 155/71 H O2 Saturation 98 99 99 11/09/20 11/09/20 12:30 13:00 Temperature Heart Rate 62 67 Respiratory 14 16 Rate Blood Pressure 169/83 H 170/78 H O2 Saturation 97 99 Oxygen O2 Source Room air - EKG (time done) 1126 Rate: Rate (enter#) (68) Rhythm: NSR Supai: Normal QRS: Low voltage Ischemia: Normal ST segments - Labs Labs: Laboratory Tests 11/09/20 11/09/20 11/09/20 11:57 11:57 11:57 WBC 6.5 RBC 4.41 Hgb 13.3 Hct 40.1 MCV 90.9 MCH 30.2 MCHC 33.2 RDW 14.4 Plt Count 269 MPV 9.3 Neut # (Auto) 4.6 Lymph # (Auto) 1.4 L [place] # (Auto) 0.4 Eos # (Auto) 0.1 Baso # (Auto) 0.0 Absolute Nucleated RBC 0.00 Nucleated RBC % 0.0 Sodium 139 Potassium 4.2 Chloride 105 Carbon Dioxide 25 Anion Gap 9.0 BUN 22 H Creatinine 1.1 H Estimated GFR (MDRD) 50 L Glucose 99 Calcium 9.4 Total Bilirubin 0.5 AST 25 ALT 22 Alkaline Phosphatase 73 Troponin I High Sens 5.0 Total Protein 6.9 Albumin 4.4 Globulin 2.5 Albumin/Globulin Ratio 1.8 Lipase 28 - Rads (name of study) 1v cxr Radiology: EMP read contemporaneously (NAD) PD MEDICAL DECISION MAKING - ED course ED course: 69-year-old woman has been having what sounds angina with exertion for the last few months. Became symptomatic and quite hypertensive during stress testing today. Then had a short episode of rest pain thereafter. Her EKG is nonischemic and her biomarkers are negative. The case was discussed by phone with Herb Lizarraga, vault person who recommends the addition of metoprolol succinate 25 mg once a day, losartan 25 mg once a day, continuation of baby aspirin and as needed nitroglycerin pending follow-up. Departure - Departure Disposition: 01 Home, Self Care Clinical Impression: Chest pain Condition: Good Record reviewed to determine appropriate education?: Yes Instructions: Angina Dc Follow-Up: Herb Lizarraga MD [Provider Admit Priv/Credential] - Within 1 week Prescriptions: Nitroglycerin [Nitrostat] 0.4 mg SL Q5MIN PRN #1 bottle PRN Reason: Chest Pain Losartan Potassium 25 mg PO DAILY #30 tablet Metoprolol Succinate [Toprol Xl] 25 mg PO DAILY #30 tablet Comments: I will call you [phone] after I talk with Dr. Lizarraga, but I am sure they will want to see you in the office. After I discussed with him I will call any prescriptions into [facility] in [place]. Discharge Date/Time: 11/09/20 13:28
--- NOTE | 2020-11-09 11:53 | XRAY Report ---
PROCEDURE: Chest 1 View X-Ray INDICATIONS: Chest Pain TECHNIQUE: One view of the chest was acquired. COMPARISON: None FINDINGS: Surgical changes and devices: Lower cervical spine plate and screw instrumentation noted.. Lungs and pleura: No pleural effusions or pneumothorax. Lungs are clear. Mediastinum: Mediastinal contours appear normal. Heart size is normal. Atherosclerotic calcificatio n of the abdominal aorta without evidence of aneurysm. Bones and chest wall: No suspicious bony lesions. Overlying soft tissues appear unremarkable. IMPRESSION: No acute cardiopulmonary findings. Aortic atherosclerosis and lower cervical spine instrumentation Reviewed by: Dmitry Knox MD on 11/09/2020 10:52 AM BRUCE Approved by: Dmitry Knox MD on 11/09/2020 10:52 AM AKRANDY Station ID: [id number]
[2020-11-09 12:03] LABS: BASOPHILS % (AUTO) 0.6 %; EOSINOPHILS # (AUTO) 0.1 10^3/uL (0.0-0.7); HCT - HEMATOCRIT 40.1 % (37.0-47.0); HGB - HEMOGLOBIN 13.3 g/dL (12.0-16.0); LYMPHOCYTES # (AUTO) 1.4 10^3/uL (1.5-3.5); LYMPHOCYTES % (AUTO) 20.9 %; MEAN CORPUSCULAR HEMOGLOBIN 30.2 pg (27.0-31.0); MEAN CORPUSCULAR HGB CONC 33.2 g/dL (32.0-36.0); MEAN CORPUSCULAR VOLUME 90.9 fL (81.0-99.0); MEAN PLATELET VOLUME 9.3 fL (7.9-10.8); MONOCYTES # (AUTO) 0.4 10^3/uL (0.0-1.0); MONOCYTES % (AUTO) 6.4 %; NEUTROPHILS # (AUTO) 4.6 10^3/uL (1.5-6.6); NEUTROPHILS % (AUTO) 69.9 %; PLT - PLATELET COUNT 269 10^3/uL (130-450); RED BLOOD COUNT 4.41 10^6/uL (4.20-5.40); RED CELL DISTRIBUTION WIDTH 14.4 % (12.0-15.0); WHITE BLOOD COUNT 6.5 x10^3/uL (4.8-10.8)
[2020-11-09 12:22] LABS: ALBUMIN 4.4 g/dL (3.2-5.5); ALBUMIN/GLOBULIN RATIO 1.8 (1.0-2.2); BILIRUBIN,TOTAL 0.5 mg/dL (0.2-1.0); CALCIUM 9.4 mg/dL (8.5-10.3); CREATININE 1.1 mg/dL (0.4-1.0); POTASSIUM 4.2 mmol/L (3.5-5.0); TOTAL PROTEIN 6.9 g/dL (6.7-8.2)
[2020-11-09 13:14] VITALS: BP 170/78
== END 2020-11-09 13:28 | disposition home or self-care (01) ==
LOC: ED 11:17
DX: R07.9 Chest pain, unspecified (principal); R94.39 Abnormal result of other cardiovascular function study; Z78.0 Asymptomatic menopausal state; I10 Essential (primary) hypertension; E78.5 Hyperlipidemia, unspecified; Z82.49 Family history of ischemic heart disease and other diseases of the circulatory system
CPT/HCPCS: 36415; 71045; 80053; 83690; 84484; 85025; 93005; 93017; 99284; 99285; A9270

== ENCOUNTER 2020-11-15 12:52 | Outpatient (CLI) | payer BC | END 2020-11-15 12:53 | disposition home or self-care (01) | LOC: LAB 12:52 | PROVIDERS: ATTEND Registered Nurse | DX: E03.9 Hypothyroidism, unspecified (principal) | CPT/HCPCS: 36415; 84443 ==

== ENCOUNTER 2021-04-02 09:46 | Outpatient (CLI) | payer BC ==
--- NOTE | 2021-04-04 13:55 | XRAY Report ---
PROCEDURE: Knee 4 View RT INDICATIONS: RIGHT KNEE PAIN TECHNIQUE: 4 views of the right knee(s) were acquired. COMPARISON: Prior evaluations are not available for review secondary to technical issues. FINDINGS: Bones: No acute fractures or dislocations. No suspicious bony lesions. There are postoperative henley ges from right knee anterior cruciate ligament reconstruction. No evidence for hardware complication. There are also postsurgical changes from prior left total knee arthroplasty without evidence for loo sening or failure. Severe tricompartmental degenerative changes of the right knee with near complete joint space loss of the medial femoral tibial compartment on weightbearing views. Prominent marginal osteophytes, largest in the medial and patellofemoral compartments. Soft tissues: No substantial joint effusion. No suspicious soft tissue calcifications. IMPRESSION: 1. No acute osseous abnormalities identified. 2. Severe tricompartmental osteoarthritic changes of the right knee most pronounced in the medial fem orotibial and patellofemoral compartments. 3. Postoperative changes from right anterior cruciate ligament reconstruction and left total knee art hroplasty without evidence for hardware complication. Reviewed by: Augie Romero MD on 04/04/2021 1:53 PM PDT Approved by: Augie Romero MD on 04/04/2021 1:53 PM PDT Station ID: [id number]
== END 2021-04-02 09:47 | disposition home or self-care (01) ==
LOC: DI.N 09:46
PROVIDERS: ATTEND Orthopaedic Surgery
DX: M25.561 Pain in right knee (principal); M17.11 Unilateral primary osteoarthritis, right knee

== ENCOUNTER 2021-05-08 06:03 | Day surgery (SDC) | payer BC ==
[2021-05-08] MEDS ORDERED: CEFAZOLIN SODIUM IN 0.9 % NACL 2 GM/100 ML BAG IV ONE (06:17)
[2021-05-08] MEDS ORDERED: ACETAMINOPHEN 500 MG TABLET PO ONE (06:18)
[2021-05-08] MEDS ORDERED: CELECOXIB 100 MG CAPSULE PO ONE (06:18)
[2021-05-08] MEDS ORDERED: DEXAMETHASONE 10 MG/ML VIAL ONE (06:18)
[2021-05-08 06:33] VITALS: BP 145/77
[2021-05-08] MEDS ORDERED: LACTATED RINGERS 1,000 ML IV ONE (06:47)
[2021-05-08] MEDS ORDERED: PROPOFOL 500 MG/50 ML 0 MG/0 ML VIAL ONE (07:14)
[2021-05-08] MEDS ORDERED: MIDAZOLAM 2 MG/2 ML VIAL ONE (07:14)
[2021-05-08] MEDS ORDERED: HYDROmorphone 0.5 MG/0.5 ML SYRINGE IVP PRN (07:19)
[2021-05-08] MEDS ORDERED: fentaNYL 100 MCG/2 ML VIAL IVP PRN (07:19)
[2021-05-08] MEDS ORDERED: ePHEDrine 50 MG/ML VIAL IVP PRN (07:19)
[2021-05-08] MEDS ORDERED: NALOXONE 0.4 MG/ML VIAL IVP PRN (07:19)
[2021-05-08] MEDS ORDERED: MORPHINE 2 MG/ML CARPUJECT IVP PRN (07:19)
[2021-05-08] MEDS ORDERED: METOCLOPRAMIDE 10 MG/2 ML VIAL IVP PRN (07:19)
[2021-05-08] MEDS ORDERED: ONDANSETRON 4 MG/2 ML VIAL IVP PRN (07:19)
[2021-05-08] MEDS ORDERED: ATROPINE ABBOJECT 1 MG/10 ML SYRINGE IVP PRN (07:19)
--- NOTE | 2021-05-08 07:19 | ANESTHESIA ---
Pre-Anesthesia VS, & Labs - Diagnosis right knee OA - Procedure right TKA Vital Signs: Temp Pulse Resp BP Pulse Ox 36.2 C L 62 18 145/77 H 97 05/08/21 06:32 05/08/21 06:32 05/08/21 06:32 05/08/21 06:32 05/08/21 06:32 Height: 5 ft 7 in Weight (kg): 84.4 kg Body Mass Index: 29.1 BMI Classification: Overweight - NPO >8 hours - Is Patient ?: No - Lab Results Lab results reviewed: Yes Home Medications and Allergies Home Medications: Ambulatory Orders Cetirizine [ZyrTEC] 10 mg PO DAILY PRN 05/03/21 Cholecalciferol [Vitamin D3] 50 mcg PO DAILY 05/03/21 Lmefolate/B3/Kelton/Zn/Fabienne/Chrom [Nicotinamide Tablet] 1 each PO DAILY 05/03/21 Atorvastatin [Lipitor] 20 mg PO DAILY 10/13/17 Levothyroxine [Synthroid] 88 mcg PO DAILY 10/13/17 Escitalopram [Lexapro] 10 mg PO DAILY 07/11/20 Cetirizine [ZyrTEC] 10 mg PO DAILY PRN 05/03/21 Cholecalciferol [Vitamin D3] 50 mcg PO DAILY 05/03/21 Lmefolate/B3/Kelton/Zn/Fabienne/Chrom [Nicotinamide Tablet] 1 each PO DAILY 05/03/21 Allergies/Adverse Reactions: Allergies Allergy/AdvReac Type Severity Reaction Status Date / Time lactose AdvReac Intermediate worsens IBS Verified 05/07/21 12:08 baclofen AdvReac hypotension Verified 05/07/21 12:08 duloxetine [From Cymbalta] AdvReac diarrhea Verified 11/09/20 11:26 gluten AdvReac worsens IBS Verified 11/09/20 11:26 Anes History & Medical History - Anesthetic History Anesthesia Complications: reports: No previous complications Family history of Anesthesia Complications: Denies Family history of Malignant Hyperthermia: Denies - Medical History Cardiovascular: reports: Hypertension, High cholesterol Pulmonary: reports: None Gastrointestinal: reports: GERD, Chronic constipation Urinary: reports: Renal insuffiency Neuro: reports: None Musculoskeletal: reports: Osteoarthritis Endocrine/Autoimmune: reports: HyPOthyroidism Blood Disorders: reports: None Skin: reports: None Smoking Status: Never smoker - Surgical History General: reports: Cholecystectomy Urologic: reports: Nephrectomy Gynecologic: reports: Hysterectomy Orthopedic: reports: Knee replacement, ACL reconstruction, Arthroscopic surgery Results - Echo Results Echo Results: Report reviewed Exam General: Alert, Oriented x3, Cooperative, No acute distress Dental: WNL Mouth Openin Fingerbreadth Neck Mobility: Normal Mallampati classification: II Respiratory: Lungs clear, Normal breath sounds, No respiratory distress, No accessory muscle use Cardiovascular: Regular rate, Normal S1, Normal S2, No murmurs Plan Anesthesia Type: Spinal, Adductor Block Consent for Procedure(s) Verified and Reviewed: Yes Code Status: Attempt Resuscitation ASA classification: 2-Mild systemic disease Is this case an emergency?: No
[2021-05-08] MEDS ORDERED: LIDOCAINE MPF 2%-EPI 1:200000 20 ML VIAL ONE (07:21)
[2021-05-08] MEDS ORDERED: BUPIVACAINE 0.25% PF 10 ML VIAL ONE (07:21)
[2021-05-08] MEDS ORDERED: KETOROLAC 30 MG/ML VIAL ONE (07:21)
[2021-05-08] MEDS ORDERED: VANCOMYCIN 1 GM VIAL ONE (07:22)
[2021-05-08] MEDS ORDERED: LACTATED RINGERS 1,000 ML IV SCH (08:00)
== END 2021-05-08 06:04 | disposition home or self-care (01) ==
LOC: SDS 06:03
PROVIDERS: ATTEND Orthopaedic Surgery
DX: Z53.9 Procedure and treatment not carried out, unspecified reason (principal)
CPT/HCPCS: A9270; J0690; J7120

== ENCOUNTER 2022-02-24 08:43 | Outpatient (CLI) | payer MEDICARE ==
--- NOTE | 2022-02-25 11:30 | Mammography Report ---
BILATERAL DIGITAL SCREENING MAMMOGRAM 3D/2D: 02/24/2022 CLINICAL: Routine screening. Comparison is made to exams dated: 01/31/2020 mammogram, 04/23/2016 mammogram, 10/06/2011 mammogram, and 08/12/2010 mammogram - [facility]. There are scattered areas of fibroglandular density in both breasts (category b / 25%-50% glandular t issue). No significant masses, calcifications, or other findings are seen in either breast. There has been no significant interval change. IMPRESSION: NEGATIVE There is no mammographic evidence of malignancy. A 1 year screening mammogram is recommended. Based on the Tyrer Cuzick model (a risk assessment model) the patients lifetime risk is 4.3% and her 10 year risk is 2.5%. According to the ACR, ACS, and NCCN guidelines, an annual breast MRI exam ryne g with mammogram is recommended if the patients lifetime risk is 20% or greater. This exam was interpreted at Station ID: [id number]. NOTE: For mammograms, a report in lay terms will be sent to the patient. Approximately 15% of breast malignancies will not be visualized mammographically. In the management of a palpable breast mass, a negative mammogram must not discourage biopsy of a clinically suspicious lesion. Electronically Signed By: David Miranda M.D., jr/kandace:02/24/2022 09:58:37 ACR BI-RADS Category 1: Negative 3341F PARENCHYMAL PATTERN: (A) - The breast(s) demonstrate(s) scattered fibroglandular densities. BI-RADS CATEGORY: (1) - 1 RECOMMENDATION: (ANNUAL) - Recommend routine annual screening mammography. [id number] 1 year screening LATERALITY: (B)
== END 2022-02-24 08:44 | disposition home or self-care (01) ==
LOC: DI.S 08:43
PROVIDERS: ATTEND Registered Nurse
DX: Z12.31 Encounter for screening mammogram for malignant neoplasm of breast (principal)

== ENCOUNTER 2022-12-11 09:53 | Outpatient (CLI) | payer MEDICARE ==
--- NOTE | 2022-12-11 13:09 | XRAY Report ---
PROCEDURE: Shoulder 3 View RT INDICATIONS: ADHESIVE CAPSULITIS OF RIGHT SHOULDER TECHNIQUE: 3 views of the shoulder were acquired. COMPARISON: CXR 11/09/2020. FINDINGS: Bones: No fractures or dislocations. No suspicious bony lesions. Visualized ribs appear intact. ACDF. Soft tissues: No suspicious soft tissue calcifications. IMPRESSION: Moderate degenerative changes at the AC joint. Reviewed by: Coy De La Cruz MD on 12/11/2022 1:08 PM PDT Approved by: Coy De La Cruz MD on 12/11/2022 1:08 PM PDT Station ID: [id number]
== END 2022-12-11 09:54 | disposition home or self-care (01) ==
LOC: DI.S 09:53
PROVIDERS: ATTEND Nurse Practitioner Family
DX: M75.01 Adhesive capsulitis of right shoulder (principal); M19.011 Primary osteoarthritis, right shoulder

== ENCOUNTER 2023-10-07 13:33 | Outpatient (CLI) | payer MEDICARE ==
--- NOTE | 2023-10-08 09:13 | Mammography Report ---
BILATERAL DIGITAL SCREENING MAMMOGRAM 3D/2D: 10/07/2023 CLINICAL: Routine screening. Comparison is made to exams dated: 02/24/2022 mammogram, 01/31/2020 mammogram, and 04/23/2016 mammogram - [facility]. There are scattered areas of fibroglandular density in both breasts (category b / 25%-50% glandular t issue). No significant masses, calcifications, or other findings are seen in either breast. There has been no significant interval change. IMPRESSION: NEGATIVE There is no mammographic evidence of malignancy. A 1 year screening mammogram is recommended. Based on the Tyrer Cuzick model (a risk assessment model) the patient's lifetime risk is 4.1% and her 10 year risk is 2.6%. According to the ACR, ACS, and NCCN guidelines, an annual breast MRI exam ryne g with mammogram is recommended if the patient's lifetime risk is 20% or greater. This exam was interpreted at Station ID: [id number]. NOTE: For mammograms, a report in lay terms will be sent to the patient. Approximately 15% of breast malignancies will not be visualized mammographically. In the management of a palpable breast mass, a negative mammogram must not discourage biopsy of a clinically suspicious lesion. Electronically Signed By: Dane liao/kandace:10/07/2023 15:51:23 letter sent: No_Letter ACR BI-RADS Category 1: Negative 3341F PARENCHYMAL PATTERN: (A) - The breast(s) demonstrate(s) scattered fibroglandular densities. BI-RADS CATEGORY: (1) - 1 RECOMMENDATION: (ANNUAL) - Recommend routine annual screening mammography. [id number] 1 year screening LATERALITY: (B)
== END 2023-10-07 13:34 | disposition home or self-care (01) ==
LOC: DI 13:33
PROVIDERS: ATTEND Registered Nurse
DX: Z12.31 Encounter for screening mammogram for malignant neoplasm of breast (principal); R92.323 Mammographic fibroglandular density, bilateral breasts

== ENCOUNTER 2023-10-07 15:47 | Outpatient (CLI) | payer MEDICARE ==
--- NOTE | 2023-10-07 19:41 | DEXA Report ---
PROCEDURE: Dexa Spine and/or Hip INDICATIONS: POST MENOPAUSAL TECHNIQUE: Dual energy x-ray absorptiometry (DEXA) was performed in the regions detailed below. COMPARISON: None. FINDINGS: Lumbar Spine: Bone Mineral Density 1.288 g/cm/cm,T score 0.9. Normal Left Femoral Neck: Bone Mineral Density 0.907 g/cm/cm, T score -0.9. Normal Left Total Hip: Bone Mineral Density 0.923 g/cm/cm,T score -0.7. Normal (T score greater or equal to -1.0: NORMAL) (T score from -1.1 to -2.4: OSTEOPENIA) (T score less than or equal to -2.5 to: OSTEOPOROSIS) IMPRESSION: Normal bone mineralization Patients with diagnosis of osteoporosis or osteopenia should have regular bone mineral density assess ment. For those eligible for Medicare, routine testing is allowed once every 2 years. Testing frequ ency can be increased for patients who have rapidly progressing disease or for those who are receivin g medical therapy to restore bone mass. Reviewed by: Dmitry Knox MD on 10/07/2023 6:40 PM BRUCE Approved by: Dmitry Knox MD on 10/07/2023 6:40 PM BRUCE Station ID: [id number]
== END 2023-10-07 15:48 | disposition home or self-care (01) ==
LOC: DI 15:47
PROVIDERS: ATTEND Registered Nurse
DX: Z78.0 Asymptomatic menopausal state (principal)

== ENCOUNTER 2024-01-13 18:39 | Outpatient (CLI) | payer MEDICARE | END 2024-01-13 23:59 | disposition short-term general hospital (02) | LOC: EMS 18:39 | DX: S06.9X1A Unspecified intracranial injury with loss of consciousness of 30 minutes or less, initial encounter (principal); S01.91XA Laceration without foreign body of unspecified part of head, initial encounter; S01.81XA Laceration without foreign body of other part of head, initial encounter; S82.201B Unspecified fracture of shaft of right tibia, initial encounter for open fracture type I or II; S82.401B Unspecified fracture of shaft of right fibula, initial encounter for open fracture type I or II; W11.XXXA Fall on and from ladder, initial encounter; Y92.009 Unspecified place in unspecified non-institutional (private) residence as the place of occurrence of the external cause | CPT/HCPCS: A0425; A0427 ==

== ENCOUNTER 2024-01-27 12:28 | Outpatient (CLI) | payer MEDICARE ==
--- NOTE | 2024-01-27 16:17 | XRAY Report ---
PROCEDURE: Elbow 3+V LT INDICATIONS: RADIUS FX TECHNIQUE: 4 views of the elbow were acquired. COMPARISON: None. FINDINGS: Bones: No acute fracture subluxation is visualized. Soft tissues: Slight displacement of the anterior fat pad, questionable IMPRESSION: Minimal displacement of the anterior fat pad of the elbow; this can represent radiographically occult fracture. Reviewed by: Gage Flores MD on 01/27/2024 4:16 PM PDT Approved by: Gage Flores MD on 01/27/2024 4:16 PM PDT Station ID: [id number]
== END 2024-01-27 12:29 | disposition home or self-care (01) ==
LOC: DI.S 12:28
PROVIDERS: ATTEND Registered Nurse
DX: S52.102D Unspecified fracture of upper end of left radius, subsequent encounter for closed fracture with routine healing (principal); R93.6 Abnormal findings on diagnostic imaging of limbs; R93.89 Abnormal findings on diagnostic imaging of other specified body structures

== ENCOUNTER 2024-02-05 08:40 | Outpatient (CLI) | payer MEDICARE ==
[~2024-02-05 08:40] MED LIST: GADOTERATE MEGLUMINE 10 MMOL/20 ML VIAL ONE
[2024-02-05] MEDS: GADOTERATE MEGLUMINE 10 MMOL/20 ML VIAL IVP ONE (10:11)
--- NOTE | 2024-02-10 15:16 | MRI Report ---
PROCEDURE: MRCP W/WO INDICATIONS: DILIATION OF BILE DUCT CONTRAST: CLARISCAN 15.4 TECHNIQUE: Coronal ultra fast SE through the abdomen, axial 2-D spoiled GE in- and [id number], and breath-hold T2 FSE with fat saturation through the biliary system and pancreas. Oblique coronal and axial thin- slice ultra fast SE, radial thick-slab ultra fast SE centered on the extrahepatic bile ducts. COMPARISON: None available FINDINGS: Image quality: Excellent. Gallbladder: Surgically absent. Biliary tree: Common bile duct is dilated at 1.4 cm. The margins are smooth and there is tapering to the ampulla. Smooth central intrahepatic biliary dilatation without beading. There is a possible stri cture between the inferior right lobe duct and the duct confluence. No intraluminal filling defects. No ductal enhancement. Pancreas: Pancreatic duct is dilated in the head measuring up to 6 mm there is margin is smooth. Ther e is classic ductal anatomy. No suspicious glandular lesion. Lung bases and heart: Unremarkable. Liver: No solid mass. Spleen: No splenomegaly. Adrenals: No adrenal nodule. Kidneys and ureters: Absent left kidney. Normal right kidney without cyst, solid mass, or hydronephro sis. Nondilated right ureter. Bowel and peritoneum: Stomach and visible bowel loops are normal. Lymph nodes: No central or retroperitoneal adenopathy. Vessels: No infrarenal aortic aneurysm. Bones: No aggressive osseous abnormality. Other: No significant ventral hernia. IMPRESSION: Pancreaticobiliary ductal dilatation without MR evidence of obstructing lesion. This may be due to an inflammatory/bland stricture or ampullary edema. If this is progressive, consider ERCP with brushing s. Possible intrahepatic biliary stricture involving the inferior right hepatic lobe duct without enhanc ement. This is nonspecific and comparison to prior exams is recommended. Prior left nephrectomy. Reviewed by: Zuly Delgado MD on 02/10/2024 3:15 PM PDT Approved by: Zuly Delgado MD on 02/10/2024 3:15 PM PDT Station ID: [id number]
== END 2024-02-05 08:41 | disposition home or self-care (01) ==
LOC: DI 08:40
PROVIDERS: ATTEND Registered Nurse
DX: K83.8 Other specified diseases of biliary tract (principal); K86.89 Other specified diseases of pancreas; R93.2 Abnormal findings on diagnostic imaging of liver and biliary tract
CPT/HCPCS: 74183; A9575